=== PATIENT | female | born 1965 | race Caucasian/White ===

== ENCOUNTER → 2021-12-12 | Day surgery (SDC) | payer OTHER ==
[~2021-12-12] VITALS: Ht 170.2 cm; Wt 68.9 kg
[~2021-12-12] MED LIST: AMBIEN10 MG PO; LEVOTHYROXINE50 MCG PO; LIPITOR40 MG PO; PROZAC20 MG PO; VITAMIN D3125 MCG PO
== END | disposition home or self-care (01) ==
LOC: FAS 09:05
DX: Z12.11 Encounter for screening for malignant neoplasm of colon (principal); D12.4 Benign neoplasm of descending colon; I10 Essential (primary) hypertension; E03.9 Hypothyroidism, unspecified; K64.8 Other hemorrhoids; Z86.010 Personal history of colon polyps; Z88.2 Allergy status to sulfonamides
CPT/HCPCS: J7120